=== PATIENT | male | born 1965 | race Caucasian/White ===

== ENCOUNTER 2022-05-01 00:45 | Day surgery (SDC) | payer BC, SELFPAY ==
[2022-04-12 12:41] VITALS: BMI 23.8
[2022-05-01 10:14] VITALS: BP 135/76; PULSE 63; RESP 18; TEMP 36.2; O2SAT 100; BMI 24.5
[2022-05-01] MEDS: LACTATED RINGERS 1,000 ML 150 ML IV CONT (10:25)
--- NOTE | 2022-05-01 10:32 | PM.HPGS ---
History of Present Illness History of Present Illness Consent: Risks, benefits, and alternatives have been discussed and questions answered. Patient agrees to proceed with procedure. Chief complaint: hx of colon polyps Narrative: Tony Zavaleta is a 56 year old male Referred for colon cancer screening. He had 3 polyps removed about 5 years ago Review of Systems Review of Systems: All systems reviewed & are unremarkable except as noted in HPI and below PMFSH Family History Family History Father Family history of rheumatoid arthritis Other Family history of arthritis Family history of malignant neoplasm Social History Social History Smoking status: Never smoker Alcohol intake: current Living arrangements: with family Meds Home Medications and Allergies Home Medications Medication Instructions Recorded Confirmed Type atorvastatin 10 mg tablet (Lipitor) 10 mg PO DAILY 04/12/22 04/12/22 History Allergies Allergy/AdvReac Type Severity Reaction Status Date / Time No Known Allergies Allergy Verified 05/01/22 10:13 Vital Signs Vital Signs - 24 hr 05/01/22 10:14 Temperature 36.2 C L Pulse Rate 63 Respiratory Rate 18 Blood Pressure 135/76 Pulse Oximetry 100 Oxygen Delivery Room Air Exam Resp: Auscultation: clear to auscultation bilaterally Cardio: Rate: regular rate Rhythm: regular rhythm GI: GI Palp: Yes Soft to palpation and No Tenderness to palpation present (GI) Assessment and Plan Assessment and plan (1) Colon cancer screening: Code(s): Z12.11 - Encounter for screening for malignant neoplasm of colon Status: Acute Assessment and Plan: Colonoscopy with possible biopsy or polypectomy or cautery or injection of substances.
--- NOTE | 2022-05-01 10:55 | P.PNAN_ITS ---
Anes - Initial Pre Proc Eval Procedure: Operation Date: 05/01/22 11:00 Proposed Procedures p Screening Colonoscopy - Anthony Aleman MD Date/Time: 05/01/22 10:55 Surgeon: Anthony Aleman MD Pre Op Diagnosis: hx of colon polyps Patient Data Age: 56 Gender: M Height: 1.57 m Weight: 60.8 kg Last Vital Signs Temp 97.1 F L 05/01/22 10:14 Pulse 63 05/01/22 10:14 Resp 18 05/01/22 10:14 BP 135/76 05/01/22 10:14 Pulse Ox 100 05/01/22 10:14 O2 Del Method Room Air 05/01/22 10:14 Allergies Allergy/AdvReac Type Severity Reaction Status Date / Time No Known Allergies Allergy Verified 05/01/22 10:13 Home Medications Medication Instructions Recorded Confirmed Type atorvastatin 10 mg tablet (Lipitor) 10 mg PO DAILY 04/12/22 04/12/22 History Patient hx anesthesia problems: none Family hx anesthesia problems: none Results Review: All pre-operative results and documents have been reviewed as part of the pre-o perative evaluation. [facility] Family History Family History Father Family history of rheumatoid arthritis Other Family history of arthritis Family history of malignant neoplasm Social History Social History Smoking status: Never smoker Alcohol intake: current Living arrangements: with family Anes - Eval Final PreProcedure Day of Procedure 05/01/22 10:55 Patient weight: normal Heart: regular rate and rhythm Lungs: clear to auscultation Airway: Mallampati scale class II Neurological: alert and oriented Last oral intake: >/= 8 hours ASA classification: II Emergent: no Anesthetic plan: proceed Anesthesia type and monitoring: general GIVS and standard monitoring Results Review: All pre-operative results and documents have been reviewed as part of the pre- operative evaluation. Informed Consent: The patient's anesthetic plan and its attendant risks and benefits were discussed with the patient/family/POA. Questions were solicited and answers provided to the satisfaction of the patient/family/POA.
[2022-05-01] MEDS: SIMETHICONE ORAL SUSPENSION 20 MG/0.3 ML 30 ML BOTTLE 0.6 ML IRRIGATION (11:06)
[2022-05-01 11:16] VITALS: BP 103/97; PULSE 72; RESP 15; O2SAT 97
[2022-05-01 11:26] VITALS: BP 105/72; PULSE 71; RESP 21; O2SAT 98
[2022-05-01 11:36] VITALS: BP 127/79; PULSE 63; RESP 19; O2SAT 100
== END 2022-05-01 11:40 | disposition home or self-care (01) ==
PROVIDERS: Visit Provider Internal Medicine Gastroenterology
PROC: 0DJD8ZZ Inspection of Lower Intestinal Tract, Via Natural or Artificial Opening Endoscopic (ICD-10-PCS; CPT 45378; principal; 2022-05-01 11:00)
DX: Z12.11 Encounter for screening for malignant neoplasm of colon (principal); D12.4 Benign neoplasm of descending colon
CPT/HCPCS: 45385; 88305; J2001; J2704; J7120